=== PATIENT | male | born 1955 | race Caucasian/White ===

== ENCOUNTER 2021-11-16 14:08 | Outpatient (CLI) | payer MEDICARE, SELFPAY ==
--- NOTE | ~2021-11-16 | MR_ITS ---
EXAMINATION: MR lumbar spine wo con DATE: 11/16/2021 15:05 INDICATION: Back and leg pain TECHNIQUE: Magnetic resonance imaging (MRI) of the lumbar spine was performed without intravenous con trast. Sequences included sagittal T2-weighted FSE, sagittal T2-weighted FS FSE, sagittal T1-weighted FSE, and axial T2-weighted FSE. COMPARISON: None FINDINGS: 2-3 mm anterolisthesis L2 on L3. 2 mm retrolisthesis L4 on L5. Chronic T12 and L1 superior endplate c ompression fractures with up to 20% central vertebral body height loss. Moderate disc height loss at L4-L5. Mild disc height loss at L2-3 and L3-L4. Normal heterogeneous pattern of red-yellow marrow sig nal. The conus medullaris terminates at T12-L1. There is normal signal in the caudal spinal cord. Arcadio ateral T2 hyperintense renal cysts. Paravertebral soft tissues are otherwise unremarkable. The follow ing disc levels are specifically discussed: T12-L1: Disc is mildly bulging. There is mild right and mild to moderate left facet joint osteoarthri tis. There is mild bilateral neural foraminal stenosis. There is mild central canal stenosis. L1-L2: Disc is minimally bulging. There is mild hypertrophy of the ligamentum flavum. There is mild r ight and mild to moderate left facet joint osteoarthritis. There is mild bilateral neural foraminal s tenosis. There is mild central canal stenosis. L2-L3: Disc is minimally bulging. There is hypertrophy of the ligamentum flavum. There is moderate to severe bilateral facet joint osteoarthritis. There is mild bilateral neural foraminal stenosis. Ther e is mild to moderate central canal stenosis. L3-L4: Disc is mildly bulging. There is mild hypertrophy of the ligamentum flavum. There is moderate to severe bilateral facet joint osteoarthritis. There is mild bilateral neural foraminal stenosis. Th ere is mild central canal stenosis. L4-L5: Disc is bulging with annular fissure. There is hypertrophy of the ligamentum flavum. There is moderate right and mild to moderate left facet joint osteoarthritis. There is moderate bilateral madan ral foraminal stenosis. There is mild to moderate central canal stenosis. L5-S1: Disc is minimally bulging. There is severe right and moderate to severe left facet joint osteo arthritis. There is mild bilateral neural foraminal stenosis. There is no central canal stenosis. IMPRESSION: 1. Moderate lumbar spondylosis with chronic T12 and L1 compression fractures. Reviewed, dictated and finalized at location A.
[2021-11-16 14:42] LABS: Estimated Glomerular Filt Rate 33
== END 2021-11-16 14:09 ==
PROVIDERS: PCP Family Medicine; Visit Provider Nurse Practitioner Family
DX: M47.815 Spondylosis without myelopathy or radiculopathy, thoracolumbar region (principal); M48.05 Spinal stenosis, thoracolumbar region; M47.817 Spondylosis without myelopathy or radiculopathy, lumbosacral region; M48.07 Spinal stenosis, lumbosacral region; M48.55XA Collapsed vertebra, not elsewhere classified, thoracolumbar region, initial encounter for fracture
CPT/HCPCS: 72148

== ENCOUNTER 2022-06-17 15:47 | Outpatient (CLI) | payer MEDICARE, SELFPAY ==
--- NOTE | ~2022-06-17 | MR_ITS ---
EXAMINATION: MR lumbar spine wo con DATE: 06/17/2022 16:18 INDICATION: Low back pain. TECHNIQUE: Magnetic resonance imaging (MRI) of the lumbar spine was performed without intravenous con trast. Sequences included sagittal T2-weighted FSE, sagittal T2-weighted FS FSE, sagittal T1-weighted FSE, and axial T2-weighted FSE. COMPARISON: Lumbar spine MRI 11/16/2021, MRCP 03/01/2013 FINDINGS: There is 8 degrees dextrocurvature of lumbar spine. There is 3 mm anterolisthesis of L2 on L3. There are chronic compression fractures of T12 and L1 with 1/5 loss of height. There is a chronic compression fracture of L2 with less than 1/5 loss of height. There is moderately decreased disc hei ght at T12-L1, mildly decreased disc height at L2-L3 and severely decreased disc height at L4-L5. The distal spinal cord signal intensity is normal. The conus medullaris is at T12-L1. There are cysts in the kidneys measuring up to 5.5 cm on the left. Partially visualized is a chronic 2.4 cm mass in rig ht adrenal gland, likely an adenoma. The following disc levels are specifically discussed: T12-L1: The disc is bulging. There is mild right and moderate left facet joint osteoarthritis. There is mild bilateral neural foraminal stenosis. There is mild central canal stenosis. L1-L2: The disc is bulging. There is moderate bilateral facet joint osteoarthritis. There is mild mile ateral neural foraminal stenosis. There is no central canal stenosis. L2-L3: The disc does not extend beyond the endplate margin. There is severe bilateral facet joint ost eoarthritis. There is mild bilateral neural foraminal stenosis. There is mild central canal stenosis. L3-L4: The disc is bulging. There is severe bilateral facet joint osteoarthritis. There is mild bilat eral neural foraminal stenosis. There is no central canal stenosis. L4-L5: The disc is bulging and has an annular fissure. There is severe bilateral facet joint osteoart hritis. There is moderate right and mild left neural foraminal stenosis. There is moderate central ca nal stenosis. L5-S1: There is a central protrusion. There is severe bilateral facet joint osteoarthritis. There is mild bilateral neural foraminal stenosis. There is mild central canal stenosis. IMPRESSION: 1. Severe lumbar spondylosis, stable from 11/16/2021. Reviewed, dictated and finalized at location A. GE LPN
--- NOTE | ~2022-06-17 | XR_ITS ---
EXAMINATION: XR lumbar spine 2-3V DATE: 06/17/2022 16:37 INDICATION: Lumbar radiculopathy. TECHNIQUE: 3 views of lumbar spine were obtained. COMPARISON: Lumbar spine MRI 07/15/2022 FINDINGS: There is 6 degrees dextrocurvature of thoracolumbar spine. There is 3 mm anterolisthesis of L2 on L3. There are chronic compression fractures of T12 and L1 vertebral bodies. There is moderatel y decreased disc height at T12-L1, mildly decreased disc height at L2-L3, and severely decreased disc height at L4-L5. There is multilevel severe facet joint osteoarthritis. IMPRESSION: 1. Severe lumbar spondylosis. Reviewed, dictated and finalized at location A. [employer] OPERATOR HELPER
== END 2022-06-17 15:48 ==
LOC: MICIMG 15:48
PROVIDERS: PCP Family Medicine
DX: M54.16 Radiculopathy, lumbar region (principal); M43.06 Spondylolysis, lumbar region
CPT/HCPCS: 72100; 72148

== ENCOUNTER 2022-06-28 13:40 | Outpatient (CLI) | payer MEDICARE, SELFPAY ==
[2022-06-28 14:08] LABS: Alveolar/Arterial O2 Gradient 26.3 mmHg; Base Excess ABG 3.2 mEq/l (+/-2.0); Carboxyhemoglobin 0.3 % THb (0-2.0); Fractional Inspired Oxygen 21 %; Methemoglobin ABG 0.2 %THb (0-1.5); Oxygen Content ABG 16.2 %vol (16.0-22.0); Oxygen Saturation ABG 92.2 % (95.0-100.0); Oxyhemoglobin 91.3 % THb (90.0-100.0); PCO2 ABG 49.2 mmHg (35.0-45.0); PO2 ABG 64.5 mmHg (80.0-100.0); PO2 FiO2 Ratio Arterial Blood 3.07 %; Reduced Hemoglobin 8.2 %THb (0-5.0); Total Hemoglobin 12.6 g/dL (12.0-18.0); pH ABG 7.388 (7.350-7.450)
[2022-06-28 14:09] LABS: Device ROOM AIR; Modified Allen's Test Pass; Site Drawn RIGHT RADIAL
[2022-06-28 14:17] VITALS: PULSE 65; O2SAT 90
[2022-06-28 14:18] VITALS: PULSE 103; O2SAT 86
[2022-06-28 14:21] VITALS: PULSE 102; O2SAT 87
[2022-06-28 14:24] VITALS: PULSE 102; O2SAT 90
--- NOTE | 2022-06-28 14:25 | HOMEO2EVAL ---
Evaluation was performed at [facility] Home Oxygen Evaluation RC: Home Oxygen (O2) Evaluation Start: 06/28/22 14:22 Freq: Status: Active Protocol: RPE Activity Type Activity Date Activity User E-sign Co-sign Detail Recorded Client Recorded Date Recorded By Document 06/28/22 14:17 KRM [id number] 06/28/22 14:25 KRM Document 06/28/22 14:18 KRM [email or web address] 06/28/22 14:25 KRM Document 06/28/22 14:21 [email or web address] [email or web address] 06/28/22 14:25 KRM Document 06/28/22 14:24 KRM [email or web address] 06/28/22 14:25 KRM 06/28/22 06/28/22 06/28/22 14:17 14:18 14:21 Home O2 Evaluation [Oxygen] -Test Phase Resting Exercise Exercise -Oxygen Delivery Room Air Room Air Nasal Cannula -Oxygen Flow Rate (L/min) 1 [Pulse Oximetry] -Pulse Oximetry (90-100 %) 90 86 L 87 L [Pulse Rate] -Pulse Rate (60-100 beats/min) 65 103 H 102 H [Evaluation] -Activity Tolerance Fair Fair [Exercise] -Ambulation Distance (feet) -Ambulation Distance (meters) [Comments] -Home Oxygen Evaluation Comments [Charges] -Treatment Charges 06/28/22 14:24 Home O2 Evaluation [Oxygen] -Test Phase Exercise -Oxygen Delivery Nasal Cannula -Oxygen Flow Rate (L/min) 2 [Pulse Oximetry] -Pulse Oximetry (90-100 %) 90 [Pulse Rate] -Pulse Rate (60-100 beats/min) 102 H [Evaluation] -Activity Tolerance Fair [Exercise] -Ambulation Distance (feet) 400 -Ambulation Distance (meters) 121.91 [Comments] -Home Oxygen Evaluation Comments 2lpm with activity. [Charges] -Treatment Charges O2 Evaluation - Outpatient
--- NOTE | 2022-06-28 16:55 | WPDPFTINT ---
PFT Procedure Performed PFT Procedure Performed Spirometry with Pre/Post Bronchodilator Plethysmography (Lung Vol) Diffusing Cap (DLCO) Flow Vol Loop PFT Interpretation This is a pulmonary function test with pre and post-bronchodilator spirometry, plethysmography and diffusing capacity. The test was performed and results interpreted in accordance with the 2019 and 2005 ATS/ERS Task Force guidelines respectively using the Global Lung Function Initiative-2012 reference equations. Patient demonstrated good effort and cooperation. Reproducibility criteria were met. The quality of the pre bronchodilator spirometry maneuver was Grade A and post bronchodilator spirometry maneuver was Grade B. Findings: Spirometry: There is decreased maximal expiratory airflow at all lung volumes with concave expiratory flow tracing. The contour the inspiratory flow tracing is normal. The pre bronchodilator FVC is 2.69 L, 65% predicted. The pre bronchodilator FEV1 is 1.57 L, 50% predicted. The pre bronchodilator FEV1: FVC ratio is 58%. The post bronchodilator FVC is 3.06 L, representing a 14% increase. The post bronchodilator FEV1 is 1.89 L, representing a 20% increase. The post bronchodilator FEV1: FVC ratio 62%. Plethysmography: The total lung capacity is 5.74 L, 84% predicted. Functional residual capacity is 3.51 L, 98% predicted. The residual volume is 3.02 L, 127% predicted. Diffusion capacity: The diffusing capacity unadjusted for hemoglobin and carboxyhemoglobin is 17.4, 67% predicted. The diffusing capacity adjusted for alveolar volume is 3.86, 96% predicted. Arterial blood gas on room air. PH 7.39, PaCO2 49, PaO2 65. Impression: There is a moderately severe obstructive abnormality with significant improvement after inhaling a single dose of albuterol. The lung volumes are normal. The diffusing capacity unadjusted for hemoglobin and carboxyhemoglobin is mildly decreased and normalizes when adjusted for alveolar volume. The resting room air blood gas demonstrates a mixed acid-base disturbance with a metabolic alkalosis and respiratory acidosis with mild hypoxemia at rest. There are no prior studies for comparison
== END 2022-06-28 13:41 | disposition home or self-care (01) ==
PROVIDERS: PCP Family Medicine; Visit Provider Nurse Practitioner Family
DX: J96.00 Acute respiratory failure, unspecified whether with hypoxia or hypercapnia (principal); R94.2 Abnormal results of pulmonary function studies
CPT/HCPCS: 36600; 82375; 82805; 83050; 94060; 94618; 94726; 94729

== ENCOUNTER 2022-08-24 13:27 | Outpatient (CLI) | payer MEDICARE, SELFPAY ==
--- NOTE | 2022-09-12 13:58 | WPDSLEEPSTUD ---
Sleep Study Date of Study: 08/24/22 Ordering Provider: Manjeet Baker APRN Interpreting Physician: Tiffanie Flower MD Sleep Study Type: Split Polysomnogram Height: 1.75 m Weight: 145.15 kg Body Mass Index: 47.2 Neck Circumference (inches): 21 [place]: 11 Reason for Sleep Study Excessive daytime sleepiness, snoring, disrupted sleep Sleep History Rachid Johnson is a 67-year-old man with multiple medical comorbidities, hypertension, heart disease, diabetes and acid reflux. He also has COPD, asthma and hypercapnia. On 06/28/2022 arterial blood gas showed a pH 7.38, pCO2 49.2, PO2 64.5. He has complaints of increased daytime sleepiness. He says that on he fell down twice, was a sleeping could not be awaken. Ambulance was called and he was admitted to the hospital for respiratory failure. He occasionally snores and occasionally it is loud enough that others complain about it. He occasionally has difficulty sleeping with a cold. He rarely wakes up gasping for breath at night. He occasionally has breathing problems at night observed by others. He rarely sweats excessively at night. He does not notice pounding or beating irregularly at night. He frequently falls asleep during the day, never while driving. He does not have loss of muscle tone with strong emotion. He occasionally has daytime difficulties due to excessive sleepiness. He does not feel paralyzed on waking or falling asleep nor does he have vivid dreamlike scenes upon awakening or falling asleep. He does not feel afraid to go to sleep. He does not have nightmares. He occasionally remembers his dreams. He rate rarely has racing thoughts. He rarely feels sad or depressed. He occasionally feels anxiety. He rarely has muscular tension. He rarely notices parts of his body jerking. He does not kick at night. He occasionally has crawling aching feelings in his legs. He rarely has any kind of leg pain at night. He does not have morning jaw pain. He rarely grinds his teeth during sleep. He occasionally is bothered by pain during the day. He rarely is awakened by pain at night. He rarely wakes up feeling stiff in the morning with sore achy muscles. He has fatigue and panic. He takes sedatives. Normal bedtime is 1:00 a.m. typically waking 3-4 times during the night to go to the bathroom. He may stay awake for 5-10 minutes. He wakes in the day at 11:00 a.m.. His weekend schedule is the same. He estimates sleeping 9 or 10 hours. He takes naps in the afternoon or evening. A short nap lasting 10 or 15 minutes may be refreshing. He is usually drowsy on waking. He feels better in the evening compared to other times of day. Habits: He was a 2 pack-a-day smoker. Caffeine, full pots of coffee daily. No alcohol. No recreational substances. [facility] Past Medical History Medical History Apnea Bilateral foot pain BMI greater than 40 Chronic GERD Diverticulosis Esophageal varices determined by endoscopy Endoscopy done at [facility] c/o Aaron Limon MD on 08/01/2019 Essential (primary) hypertension (04/10/18) History of hepatitis C virus infection Hyperuricemia Liver disease, cystic, congenital Localized, primary osteoarthritis of ankle or foot Major depression, recurrent, chronic Microalbuminuria Mixed hyperlipidemia Morbid obesity Type 2 diabetes mellitus without complication, without long-term current use of insulin Ventral hernia without obstruction or gangrene Surgical History Surgical History History of esophagogastroduodenoscopy (EGD) 05/27/20 c/o Dr[address] Jonas Lowry at [facility] Family History Family History Father Lung cancer Mother Sibling Sepsis Sibling Amputation leg, bilat Diabetes mellitus Other Depression Family history of cardiovascular disease
[2022-09-12 14:38] VITALS: BMI 47.2
== END 2022-08-25 07:14 | disposition home or self-care (01) ==
LOC: ANHCSM 13:28
PROVIDERS: PCP Family Medicine; Visit Provider Nurse Practitioner Family
DX: G47.10 Hypersomnia, unspecified (principal)
CPT/HCPCS: 95811